=== PATIENT | male | born 1940 | race Caucasian/White ===

== ENCOUNTER 2018-08-19 07:24 | Day surgery (SDC) | payer MEDICARE, BC, SELFPAY ==
--- NOTE | 2018-08-18 07:23 | POEE_ITS ---
History of Present Illness Chief Complaint: Progressive decreased vision, right eye Narrative: Patient is a 78-year-old male with history of myopic astigmatism and contact lens wearer who has noted progressive decreased vision in both eyes at both distance and near. He has significant difficulty with glare from h eadlights at night. On examination he was noted to have moderate nuclear and cortical cataracts. He was significantly symptomatic that he desired cataract surgery and attempt to improve and maximize his vision. NOTE: The Chief Complaint, HPI, Past Medical History, Past Surgical History, Family History, Social History, Medications, and complete Ophthalmic Exam with detailed Assessment and Plan have already been documented in the patient's outpatient ophthalmic record and are not covered again in detail here. [facility] Medical History Cortical cataract of right eye (Acute) Nuclear sclerotic cataract of right eye (Acute) Surgical History Arthroscopy, Shoulder (02/24/16) Family History Mother Heart disease Father Heart disease Stroke Brother Diabetes Essential hypertension Grandfather Heart disease Grandfather No problems noted. Grandmother No problems noted. Grandmother No problems noted. Son Stroke Daughter Substance abuse Social History Smoking and Tabacco status: Former Tobacco Use Meds Home Medications Medication Instructions Recorded Confirmed Type Lactaid 3,000 unit PO PRN tab.chew 11/18/12 08/16/18 History Lactobacillus acidophilus 1 cap PO DAILY 11/18/12 08/16/18 History ascorbic acid (vitamin C) 500 mg PO DAILY 11/18/12 08/16/18 History cholecalciferol (vitamin D3) 1 cap PO DAILY 11/18/12 08/16/18 History cyanocobalamin (vitamin B-12) 1,000 mcg PO DAILY 11/18/12 08/16/18 History [Vitamin B-12] multivitamin [One Daily] 1 tab PO DAILY 11/18/12 08/16/18 History saw palmetto fruit 450 mg PO DAILY 11/18/12 08/16/18 History ibuprofen [Advil] 2 tab PO TID PRN 02/01/15 08/16/18 History glucosamine sulfate 2KCl 1,000 mg PO DAILY 04/24/15 08/16/18 History acetaminophen [Acetaminophen Extra 1,000 mg PO TID #180 tab 10/01/15 08/16/18 Rx Strength] sildenafil [Viagra] 100 mg PO DAILY #3 tab-cap 11/30/17 08/16/[address] - ER 3 mg 3 mg PO DAILY #90 tab 05/31/18 08/16/18 Rx capsule,delayed,extended release Allergies Allergy/AdvReac Type Severity Reaction Status Date / Time iodine Allergy Unknown SWELLING; Verified 08/16/18 16:12 HIVES lactose Allergy Unknown Verified 08/16/18 16:12 shellfish derived Allergy Unknown SWELLING; Verified 08/16/18 16:12 HIVES Exam OCULAR EXAM:: Most recent ocular examination revealed corrected visual acuity of 20/30 OD, 20/20 OS. Intraocular pressure is 19 OD, 18 OS. Slit-lamp examination reveals pupils dilating to 6 mm OU. 1+ nuclear with 2+ cortical cataract OU. Pupils equal, round, and reactive without afferent pupillary defect dilated funduscopic examination shows disc cupping of 0.3 OU with good color. The optic nerves have good perfusion and normal color. The retinal vasculature is normal without significant tortuosity or abnormality. The maculas are normal in appearance with normal contour and foveal reflex appropriate for age. The peripheral retina and vitreous are normal. BRIGHTNESS ACUITY TESTING (BAT):: Brightness acuity testing of the right eye off is 20/30. Low is 20/20. Medium is 20/20. High is 20/25. Assessment and Plan (1) Nuclear sclerotic cataract of right eye: Current visit: No Status: Acute Assessment: Visually significant cataract, right eye. Plan: Cataract extraction with intraocular lens implantation, right eye (2) Cortical cataract of right eye: Current visit: No Status: Acute Assessment: Visually significant cataract, right eye. Plan: Cataract extraction with intraocular lens implantation, right eye Note: NOTE:: The details of the planned surgery, including the risks, indications,limitations,expectations,outcome and possible complications were explained to the patient. The patient understands the complications including, but not limited to: infection, hemorrhage, posterior dislocation of the lens or nuclear fragments which may require the intervention of a vitreoretinal surgeon, possible loss of the eye, or from anesthetic complications. The patient has been made aware of the option of not having surgery, that vision following surgery may not be equal to that prior to surgery, and that the planned surgery may not achieve the intended results. Following this discussion, which the patient appeared to understand, the patient wishes to proceed with cataract surgery with lens implantation of the affected eye to improve and maximize vision.
[2018-08-19 07:39] VITALS: BP 136/80; PULSE 52; RESP 14; TEMP 35.3; O2SAT 98
[2018-08-19] MEDS: Tetracaine 0.5% 4 ML BTL OD ×4 (07:56→09:17)
[2018-08-19] MEDS: Tropicam./Phenyleph. (1/2.5%) 5 ML BTL OD ×3 (07:58→08:12)
--- NOTE | 2018-08-19 08:06 | W.PM.DSUDISC ---
Discharge Plan Discharge Details Attending Provider: Jamin Booth Primary Care Provider: Terry Braden Home Meds and New Rx's Prescriptions: No Action budesonide [Entocort EC] 3 mg capsule,delayed,extend.release 3 mg PO DAILY Qty: 90 RF: 4 multivitamin [One Daily] 1 EACH tablet 1 tab PO DAILY RF: 0 cyanocobalamin (vitamin B-12) [Vitamin B-12] 1,000 MCG tablet extended release 1,000 mcg PO DAILY RF: 0 ascorbic acid (vitamin C) 500 MG tablet 500 mg PO DAILY RF: 0 Lactaid 3,000 UNIT tablet,chewable 3,000 unit PO PRN RF: 0 cholecalciferol (vitamin D3) 1,000 UNIT capsule 1 cap PO DAILY RF: 0 saw palmetto fruit 450 MG capsule 450 mg PO DAILY RF: 0 Lactobacillus acidophilus 1 EACH capsule 1 cap PO DAILY RF: 0 ibuprofen [Advil] 200 MG tablet 2 tab PO TID PRNRF: 0 glucosamine sulfate 2KCl 1,000 MG tablet 1,000 mg PO DAILY RF: 0 sildenafil [Viagra] 100 MG tablet 100 mg PO DAILY Qty: 3 RF: 6 acetaminophen [Acetaminophen Extra Strength] 500 MG tablet 1,000 mg PO TID Qty: 180 RF: 3 Discharge Instructions Stand Alone Forms: Post-op Topical Cataract, Kike Whaley (DSU) DS: Diagnosis Discharge Diagnosis (1) Status post cataract extraction and insertion of intraocular lens of right eye: Status: Chronic
--- NOTE | 2018-08-19 08:06 | W.PM.OP ---
Date of service: 08/19/18 Time of Service: 10:08 Operative Note PRE-OP DIAGNOSIS: Cataract, right eye, with corneal astigmatism POST-OP DIAGNOSIS: same PROCEDURE: Cataract extraction using phacoemulsification with toric intraocular lens implant, right eye SURGEON: Jamin Booth ANESTHESIA: MAC (with local sub-tenon's anesthetic injection) PATHOLOGY: none sent COMPLICATIONS: None Patient was transported to: same day Patient's condition: stable Implants: [employer] / ATUL Tecnis ZCT Toric Intraocular Lens Indications: Progressive decreased vision due to cataract, right eye, with corneal astigmatism Procedure Description: CATARACT SURGERY OPERATIVE REPORT PREOPERATIVE DIAGNOSIS: Nuclear/cortical cataract, right eye with against the rule astigmatism POSTOPERATIVE DIAGNOSIS: Same OPERATION: Cataract extraction using phacoemulsification with posterior chamber toric intraocular lens implant, right eye. IOL: IOL [employer] Director/Model: [employer] / ATUL Tecnis ZCT 150 IOL Power: + 21.50 diopters sphere, 1.50 cylinder IOL Serial Number: [id number] Optic Diameter: 6.0mm Haptic/Overall Diameter: 13.00mm PHACO INFO: Gray [employer] Vision System with OZil and Active Fluidics Cumulative Dispersed Energy (CDE): 9.38 seconds SURGEON: Jamin Booth MD, ONESIMO ANESTHESIA: Monitored Anesthesia Care (MAC), with local sub-tenon's anesthetic infiltration COMPLICATIONS: None SPECIMENS: None INDICATIONS FOR PROCEDURE: Patient is a 78-year-old gentleman with history of astigmatism who presented with diminished visual acuity in both eyes secondary to the development of bilateral nuclear and cortical cataracts. He was significantly symptomatic that he desired cataract surgery and attempt to improve and maximize his vision. The option of a toric intraocular lens was offered to the patient and he wished to proceed PROCEDURE: The correct surgical eye was identified and marked as the right eye and the pupil was dilated in the preoperative area using mydriatics and cycloplegics. The dilated pupil size was 7.0 mm. With the patient in the seated position, topical anesthetic was applied and a surgical marker was used to alexx the limbus at 6:00. A Surgilum Robomarker was then used to alexx the 0/180 degree reference axis. Oral sedation was administered in the form of an Imprimis MKO Melt (midazolam 3mg/ketamine 25mg/ondansetron 2mg). The patient was brought to the operating room where cardiopulmonary monitoring was instituted and surgical time-out was performed, confirming the correct operative eye and IOL power. Topical anesthesia was administered and the conjunctival fornices were irrigaed with sterile water (no Betadine was used due to a documented iodine allergy). . Lidocaine gel was applied to the cornea and the hayde-ocular area was prepped using sterile water and draped in the usual sterile fashion for intraocular surgery, including an aperture drape. A Tegaderm transparent film dressing was cut in half and used to cover the lashes and lid margins. Care was taken to sequester the lashes and lid margins under the Tegaderm dressing. A lid speculum was placed between the lids of the operative eye and the Lily-Ana operating microscope was maneuvered into position. Ivan scissors were then used to make a conjunctival buttonhole approximately 6mm posterior to the limbus in the inferonasal quadrant. Blunt dissection was carried out to expose bare sclera, and a blunt-tipped sub-tenon?s anesthesia cannula was introduced and passed posteriorly along the globe where non-preserved plain lidocaine was injected into posterior sub-Tenon?s space. A corneal ring gauge and axis marker were then used to alexx the 171 degree position for the main phaco incision.and the 171/351 degree axis for alignment of the toric IOL. A sideport knife was used to make a paracentesis port at the 7:00 postion and the anterior chamber was filled with Healon GV. A 2.4mm keratome knife was used to create a half-thickness groove at the limbus and then to construct a three-plane near-clear corneal tunnel extending 2.0mm into clear cornea at the 171 degree axis. . A flap was raised on the anterior capsule and capsulorhexis forceps were used to complete a continuous curvilinear capsulorhexis of 4.8 mm. Balanced salt solution was then used to perform cortical cleaving hydrodissection and nuclear hydrodelineation until the lens could be freely rotated within the capsular bag. The lens nucleus was then disassembled and removed within the capsular bag and iris plane using phacoemulsification. Residual cortical material was removed using the 45-degree angled silicone I/A tip with 0.3mm port. The posterior capsule was carefully polished to remove as much residual lens epithelial cells as safely possible. The capsular bag was then inflated and the anterior chamber deepened with viscoelastic. The lens implant described above was inserted into the capsular bag using the ATUL [place] Injector. A Kuglen hook was used to dial the IOL into position, about 10 degrees counterclockwise of its final alignment. Residual viscoelastic was then removed first from posterior to the IOL, then from the anterior chamber using the I/A handpiece. The I/A handpiece was then used to dial the IOL to the target axis. The lens implant was noted to center nicely within the capsular bag, with the toric IOL magdaleno aligned at the 171/351 degree axis. The incisions were stromally hydrated, and the anterior chamber was reformed using BSS. Then 0.4cc of moxifloxacin 1.5mg/ml were injected into the capsular bag and anterior chamber. The incisions were checked with a Weck spear and found to be secure. Two drops of Imprimis combination moxifloxacin/dexamethasone solution were applied to the eye. The drapes were removed and a clear plastic protective eye shield was placed over the eye. The patient was then returned to Same Day Surgery in stable condition.
[2018-08-19] MEDS: Lidocaine 2% Jelly 6 ML SYR (09:17)
[2018-08-19] MEDS: Lidocaine 1% Pres-Free 5 ML VIAL (09:28)
[2018-08-19] MEDS: Balanced Salt Soln.-PLUS 500 ML BAG (09:29)
[2018-08-19 10:34] VITALS: BP 138/69; PULSE 40; RESP 14; TEMP 35.8; O2SAT 99
== END 2018-08-19 10:50 | disposition home or self-care (01) ==
PROVIDERS: PCP Emergency Medicine; Visit Provider Ophthalmology
PROC: (CPT 66984; principal; 2018-08-19 09:30)
DX: H25.11 Age-related nuclear cataract, right eye (principal); H25.011 Cortical age-related cataract, right eye; H52.201 Unspecified astigmatism, right eye
CPT/HCPCS: 66984; V2632

== ENCOUNTER 2018-09-02 08:11 | Day surgery (SDC) | payer MEDICARE, BC, SELFPAY ==
--- NOTE | 2018-09-01 19:14 | POEE_ITS ---
History of Present Illness Chief Complaint: Progressive decreased vision, left eye Narrative: The patient is a 78-year old male with history of myopic astigmatism who has developed moderate bilateral nuclear and cortical cataracts. He has become increasingly symptomatic with progressive decreased vision over the past 6 months at distance. The option of cataract surgery was offered to the patient and he wished to proceed. He underwent cataract surgery in the right eye on 08/19/2018 with implantation of a toric intraocular lens implant. Postoperatively, he has regained best corrected vision of 20/15 in the right eye. Quality of vision is somewhat limited by the presence of a pre-existing epiretinal membrane in the right eye. He now presents for cataract surgery in the left eye. NOTE: The Chief Complaint, HPI, Past Medical History, Past Surgical History, Family History, Social History, Medications, and complete Ophthalmic Exam with detailed Assessment and Plan have already been documented in the patient's outpatient ophthalmic record and are not covered again in detail here. [facility] Medical History Cortical cataract of left eye (Acute) Nuclear sclerotic cataract of left eye (Acute) Cortical cataract of right eye (Resolved) Nuclear sclerotic cataract of right eye (Resolved) Surgical History Status post cataract extraction and insertion of intraocular lens of right eye (Chronic 08/19/18) Arthroscopy, Shoulder (02/24/16) Family History Mother Heart disease Father Heart disease Stroke Brother Diabetes Essential hypertension Grandfather Heart disease Grandfather No problems noted. Grandmother No problems noted. Grandmother No problems noted. Son Stroke Daughter Substance abuse Social History Smoking and Tabacco status: Former Tobacco Use Meds Home Medications Medication Instructions Recorded Confirmed Type Lactaid 3,000 unit PO PRN tab.chew 11/18/12 08/19/18 History Lactobacillus acidophilus 1 cap PO DAILY 11/18/12 08/19/18 History ascorbic acid (vitamin C) 500 mg PO DAILY 11/18/12 08/19/18 History cholecalciferol (vitamin D3) 1 cap PO DAILY 11/18/12 08/19/18 History cyanocobalamin (vitamin B-12) 1,000 mcg PO DAILY 11/18/12 08/19/18 History [Vitamin B-12] multivitamin [One Daily] 1 tab PO DAILY 11/18/12 08/19/18 History saw palmetto fruit 450 mg PO DAILY 11/18/12 08/19/18 History ibuprofen [Advil] 2 tab PO TID PRN 02/01/15 08/16/18 History glucosamine sulfate 2KCl 1,000 mg PO DAILY 04/24/15 08/19/18 History acetaminophen [Acetaminophen Extra 1,000 mg PO TID #180 tab 10/01/15 08/16/18 Rx Strength] sildenafil [Viagra] 100 mg PO DAILY #3 tab-cap 11/30/17 08/19/[address] - ER 3 mg 3 mg PO DAILY #90 tab 05/31/18 08/19/18 Rx capsule,delayed,extended release Allergies Allergy/AdvReac Type Severity Reaction Status Date / Time iodine Allergy Unknown SWELLING; Verified 08/19/18 07:33 HIVES lactose Allergy Unknown Verified 08/19/18 07:33 shellfish derived Allergy Unknown SWELLING; Verified 08/19/18 07:33 HIVES Exam OCULAR EXAM:: Most recent ocular examination is significant for best corrected vision of 20/15 in the right eye, 20/20 in the left eye. Intraocular pressure is 19 OD, 18 OS. Extraocular motility is normal. Pupils equal, round, and reac tive without afferent pupillary defect slit-lamp examination is significant for pupils dilating to 6 mm OU. 2+ cortical with 1+ nuclear cataract OS. In the the right eye there is a well-positioned PCIOL with clear posterior capsule. Funduscopic examination reveals disc cupping of 0.3 OU with normal vessels. An epiretinal membrane is present OD. The left macula is normal. Peripheral retina and vitreous is normal OU. BRIGHTNESS ACUITY TESTING (BAT):: Brightness acuity testing of the left eye off is 20/20. Low is 20/20. Medium is 20/20. High is 20/25. Assessment and Plan (1) Nuclear sclerotic cataract of left eye: Current visit: No Status: Acute Assessment: Visually significant cataract, left eye. Plan: Cataract extraction with intraocular lens implantation, left eye (2) Cortical cataract of left eye: Current visit: No Status: Acute Assessment: Visually significant cataract, left eye. Plan: Cataract extraction with intraocular lens implantation, left eye Note: NOTE:: The details of the planned surgery, including the risks, indications,limitations,expectations,outcome and possible complications were explained to the patient. The patient understands the complications including, but not limited to: infection, hemorrhage, posterior dislocation of the lens or nuclear fragments which may require the intervention of a vitreoretinal surgeon, possible loss of the eye, or from anesthetic complications. The patient has been made aware of the option of not having surgery, that vision following surgery may not be equal to that prior to surgery, and that the planned surgery may not achieve the intended results. Following this discussion, which the patient appeared to understand, the patient wishes to proceed with cataract surgery with lens implantation of the affected eye to improve and maximize vision.
--- NOTE | 2018-09-02 07:14 | W.PM.DSUDISC ---
Discharge Plan Disposition Patient Disposition: HOME Condition: Stable Discharge Details Attending Provider: Jamin Booth Primary Care Provider: Terry Braden Home Meds and New Rx's Prescriptions: No Action budesonide [Entocort EC] 3 mg capsule,delayed,extend.release 3 mg PO DAILY Qty: 90 RF: 4 multivitamin [One Daily] 1 EACH tablet 1 tab PO DAILY RF: 0 cyanocobalamin (vitamin B-12) [Vitamin B-12] 1,000 MCG tablet extended release 1,000 mcg PO DAILY RF: 0 ascorbic acid (vitamin C) 500 MG tablet 500 mg PO DAILY RF: 0 Lactaid 3,000 UNIT tablet,chewable 3,000 unit PO PRN RF: 0 cholecalciferol (vitamin D3) 1,000 UNIT capsule 1 cap PO DAILY RF: 0 saw palmetto fruit 450 MG capsule 450 mg PO DAILY RF: 0 Lactobacillus acidophilus 1 EACH capsule 1 cap PO DAILY RF: 0 ibuprofen [Advil] 200 MG tablet 2 tab PO TID PRNRF: 0 glucosamine sulfate 2KCl 1,000 MG tablet 1,000 mg PO DAILY RF: 0 sildenafil [Viagra] 100 MG tablet 100 mg PO DAILY Qty: 3 RF: 6 acetaminophen [Acetaminophen Extra Strength] 500 MG tablet 1,000 mg PO TID Qty: 180 RF: 3 Discharge Instructions Stand Alone Forms: Post-op Topical Cataract, Kike Whaley (DSU) Discharge Orders Discharge Orders: Discharge Order (Routine); Ordered 09/02/18 Ordered By: Jamin Booth DS: Diagnosis Discharge Diagnosis (1) Status post cataract extraction and insertion of intraocular lens of left eye: Status: Chronic
--- NOTE | 2018-09-02 07:14 | W.PM.OP ---
Date of service: 09/02/18 Time of Service: 10:32 Operative Note PRE-OP DIAGNOSIS: Cataract, left eye, with corneal astigmatism POST-OP DIAGNOSIS: same SURGEON: Jamin Booth ANESTHESIA: MAC (with local sub-tenon's anesthetic injection) PATHOLOGY: none sent COMPLICATIONS: None Patient was transported to: same day Patient's condition: stable Implants: [employer] / ATUL Tecnis ZCT Toric Intraocular Lens Indications: Progressive decreased vision due to cataract, left eye, with corneal astigmatism Procedure Description: CATARACT SURGERY OPERATIVE REPORT PREOPERATIVE DIAGNOSIS: Nuclear/cortical cataract, left eye Myopic astigmatism, left eye POSTOPERATIVE DIAGNOSIS: Same OPERATION: Cataract extraction using phacoemulsification with posterior chamber toric intraocular lens implant, left eye. IOL: IOL Transmission Assembler/Model: [employer] / ATUL Tecnis ZCT 150 IOL Power: + 21.0 diopters sphere, 1.50 cylinder IOL Serial Number: [id number] Optic Diameter: 6.0mm Haptic/Overall Diameter: 13.00mm PHACO INFO: [employer]Jotkyurion Vision System with OZil and Active Fluidics Cumulative Dispersed Energy (CDE): 10.01 seconds SURGEON: Jamin Booth MD, ONESIMO ANESTHESIA: Monitored Anesthesia Care (MAC), with local sub-tenon's anesthetic infiltration COMPLICATIONS: None SPECIMENS: None INDICATIONS FOR PROCEDURE: The patient is a 78-year old male with history of myopic astigmatism and contact lens wearer who has developed bilateral nuclear and cortical cataracts. He has become increasingly symptomatic and desires cataract surgery and attempt to improve and maximize his vision. He is Ardie undergone cataract surgery in his right eye and is doing well postoperatively. He now presents for cataract surgery in the left eye PROCEDURE: The correct surgical eye was identified and marked as the left eye and the pupil was dilated in the preoperative area using mydriatics and cycloplegics. The dilated pupil size was 6.0 mm. With the patient in the seated position, topical anesthetic was applied and a surgical marker was used to alexx the limbus at 6:00. A Surgilum Robomarker was then used to alexx the 0/180 degree reference axis. No sedation was administered. The patient was brought to the operating room where cardiopulmonary monitoring was instituted and surgical time-out was performed, confirming the correct operative eye and IOL power. Topical anesthesia was administered and ophthalmic povidone-iodine 5% was instilled into the conjunctival fornices. Lidocaine gel was applied to the cornea and the hayde-ocular area was prepped with Betadine 10% solution and draped in the usual sterile fashion for intraocular surgery, including an aperture drape. A Tegaderm transparent film dressing was cut in half and used to cover the lashes and lid margins. Care was taken to sequester the lashes and lid margins under the Tegaderm dressing. A lid speculum was placed between the lids of the operative eye and the Lily-Ana operating microscope was maneuvered into position. Ivan scissors were then used to make a conjunctival buttonhole approximately 6mm posterior to the limbus in the inferonasal quadrant. Blunt dissection was carried out to expose bare sclera, and a blunt-tipped sub-tenon?s anesthesia cannula was introduced and passed posteriorly along the globe where non-preserved plain lidocaine was injected into posterior sub-Tenon?s space. A corneal ring gauge and axis marker were then used to alexx the 29-degree position for the main phaco incision, and the 29/209 degree axis for alignment of the toric IOL. A sideport knife was used to make a paracentesis port superior/superiorly, and the anterior chamber was filled with Healon GV. A 2.4mm keratome knife was used to create a half-thickness groove at the limbus and then to construct a three-plane near-clear corneal tunnel extending 2.0mm into clear cornea at the 29 degree axis. . A flap was raised on the anterior capsule and capsulorhexis forceps were used to complete a continuous curvilinear capsulorhexis of 4.5 mm. Balanced salt solution was then used to perform cortical cleaving hydrodissection and nuclear hydrodelineation until the lens could be freely rotated within the capsular bag. The lens nucleus was then disassembled and removed within the capsular bag and iris plane using phacoemulsification. Residual cortical material was removed using the 45-degree angled silicone I/A tip with 0.3mm port. The posterior capsule was carefully polished to remove as much residual lens epithelial cells as safely possible. The capsular bag was then inflated and the anterior chamber deepened with viscoelastic. The lens implant described above was inserted into the capsular bag using the ATUL [place]' Injector. A Kuglen hook was used to dial the IOL into position, about 10 degrees counterclockwise of its final alignment. Residual viscoelastic was then removed first from posterior to the IOL, then from the anterior chamber using the I/A handpiece. The I/A handpiece was then used to dial the IOL to the target axis. The lens implant was noted to center nicely within the capsular bag, with the toric IOL magdaleno aligned at the 29/209 degree axis. The incisions were stromally hydrated, and the anterior chamber was reformed using BSS. Then 0.4cc of moxifloxacin 1.5mg/ml were injected into the capsular bag and anterior chamber. The incisions were checked with a Weck spear and found to be secure. Several drops of ophthalmic povidone-iodine 5% were then applied to the eye followed by two drops of Imprimis combination moxifloxacin/dexamethasone solution. The drapes were removed and a clear plastic protective eye shield was placed over the eye. The patient was then returned to Same Day Surgery in stable condition.
[2018-09-02 08:20] VITALS: BP 149/85; PULSE 34; RESP 15; TEMP 35.3; O2SAT 99
[2018-09-02 08:43] VITALS: BP 149/85; PULSE 34; RESP 15; TEMP 35.3; O2SAT 99
[2018-09-02] MEDS: Tetracaine 0.5% 4 ML BTL OS ×4 (08:48→09:47)
[2018-09-02] MEDS: Tropicam./Phenyleph. (1/2.5%) 5 ML BTL OS ×3 (08:48→08:59)
[2018-09-02] MEDS: Lidocaine 2% Jelly 6 ML SYR (09:46)
[2018-09-02] MEDS: Lidocaine 1% Pres-Free 5 ML VIAL (09:51)
[2018-09-02] MEDS: Balanced Salt Soln.-PLUS 500 ML BAG (09:52)
== END 2018-09-02 10:45 | disposition home or self-care (01) ==
LOC: SUR 08:12
PROVIDERS: PCP Emergency Medicine; Visit Provider Ophthalmology
PROC: (CPT 66984; principal; 2018-09-02 11:15)
DX: H25.812 Combined forms of age-related cataract, left eye (principal); H52.222 Regular astigmatism, left eye
CPT/HCPCS: 66984; V2632

== ENCOUNTER → 2018-09-12 14:11 | Outpatient (BNVA) | payer MEDICARE, BC, SELFPAY | PROVIDERS: PCP Emergency Medicine; Referring Provider Emergency Medicine; Visit Provider Student in an Organized Health Care Education/Training Program | DX: M79.661 Pain in right lower leg (principal) | CPT/HCPCS: 99212; 99213 ==

== ENCOUNTER 2018-10-06 00:37 | Outpatient (CLI) | payer MEDICARE, BC, SELFPAY ==
--- NOTE | 2018-10-06 14:57 | DI.US_ITS ---
SYMPTOM/DIAGNOSIS: RT POST CALF PAIN, M79.661, ? DVT DUPLEX VENOUS ULTRASOUND RIGHT LOWER EXTREMITY: The study was carried out according to the usual protocol. The superficial, femoral, popliteal and proximal trifurcation in the superior portion of the leg are well seen. Good compressibility is noted throughout. Flow is demonstrated and flow augmentation was easily elicited with calf compression. SUMMARY: There is no evidence of DVT. Note is made of an elongated fluid collection in the calf which does not appear to be vascular and which may be intramuscular. Please correlate clinically. This measures about 45 by 5 by 3 mm.
== END 2018-10-06 00:57 ==
PROVIDERS: PCP Emergency Medicine; Visit Provider Student in an Organized Health Care Education/Training Program
DX: M79.661 Pain in right lower leg (principal)
CPT/HCPCS: 93971

== ENCOUNTER 2018-12-07 09:18 | Outpatient (CLI) | payer MEDICARE, BC, SELFPAY ==
--- NOTE | 2018-12-07 15:00 | DI.RAD_ITS ---
SYMPTOMS/DIAGNOSIS: LEFT HIP PAIN, M25.552 LEFT HIP: Two views. There is mild narrowing of the joint space. The left hip joint space is otherwise well maintained. The bones are intact and normally mineralized. Mild degenerative changes are seen in the lower lumbosacral spine. Vascular calcifications are seen in the soft tissues. IMPRESSION: Mild degenerative changes of the left hip.
== END 2018-12-07 09:38 ==
PROVIDERS: PCP Emergency Medicine; Visit Provider Emergency Medicine
DX: M25.552 Pain in left hip (principal); M16.12 Unilateral primary osteoarthritis, left hip
CPT/HCPCS: 73502

== ENCOUNTER → 2018-12-19 14:08 | Outpatient (BNVA) | payer MEDICARE, BC, SELFPAY | PROVIDERS: PCP Emergency Medicine; Referring Provider Emergency Medicine; Visit Provider Student in an Organized Health Care Education/Training Program | DX: M16.12 Unilateral primary osteoarthritis, left hip (principal) | CPT/HCPCS: 99213 ==

== ENCOUNTER 2018-12-22 00:59 | Outpatient (CLI) | payer MEDICARE, BC, SELFPAY ==
--- NOTE | 2018-12-22 08:01 | DI.RAD_ITS ---
SYMPTOM/DIAGNOSIS: LEFT HIP INJECTION, PRIMARY OA LT HIP M16.12 FLUOROSCOPY 12/22 Fluoroscopy was utilized by Dr. Alamo. Hard copies show intra-articular injection of left hip. Fluoroscopy Time: .04 min
[2018-12-22] MEDS: Omnipaque 300 MG/ML 10 ML BTL IJ (11:19)
[2018-12-22] MEDS: Bupivacaine 0.5% Pres-Free 10 ML VIAL 6 ML IJ (11:20)
[2018-12-22] MEDS: methylPREDNISolone ACETATE 80 MG/ML VIAL IM (11:22)
--- NOTE | 2018-12-22 12:56 | W.PROCNOTE ---
Date of service: 12/22/18 Time of Service: 11:16 Procedure Note Date of procedure: 12/22/18 Procedure: Left Hip Injection with Fluoroscopic Guidance Surgeon/Proceduralist/Physician: Jeronimo Alamo Procedure Diagnosis: Left Hip Osteoarthritis Procedure Indications: Charbel has had persistent pain of the LEFT hip and groin. Noninvasive measures have been tried. To serve as both diagnostic and therapeutic, an injection under fluoroscopy was recommended. I had discussed the risks of the procedure and the patient elected to proceed. Procedure Description: Charbel was greeted in the flouroscopy room. The correct side was identified and the consent was reviewed with the patient and signed. The patient was then placed in the supine position on the fluoroscopy table. The LEFT hip was then prepped with Chloraprep. The anterolateral injection starting point was identiifed by bony landmarks and fluoroscopy. The skin and soft tissue in the tract of the injection was anesthetized with 1% Lidocaine. A spinal needle was then inserted deep into the hip joint at the level of the lateral femoral neck under fluoroscopic guidance. A small amount of Omnipaque solution was injected to confirm intraarticular placement. Once confirmed, the hip was injected with 6cc of 0.5% Bupivicaine and 80mg of Depo-Medrol. A bandaid was placed on the injection site. The patient tolerated the procedure well and noted improvement in pre-injection pain.
== END 2018-12-22 01:19 ==
PROVIDERS: PCP Emergency Medicine; Visit Provider Student in an Organized Health Care Education/Training Program
DX: M16.12 Unilateral primary osteoarthritis, left hip (principal); M25.552 Pain in left hip
CPT/HCPCS: 20610; 77002; J1040

== ENCOUNTER 2019-01-25 01:03 | Outpatient (CLI) | payer MEDICARE, BC, SELFPAY ==
--- NOTE | 2019-01-25 06:29 | DI.RAD_ITS ---
SYMPTOMS/DIAGNOSIS: LT HIP INJECTION, PRIMARY OA LT HIP, M16.12 FLUOROSCOPY: Fluoroscopy Time: 0.07 min Under fluoroscopic guidance Dr. Alamo carried out a left hip joint injection. Please see the procedure report for further information.
[2019-01-25] MEDS: Bupivacaine 0.5% Pres-Free 10 ML VIAL 7 ML IJ (08:13)
[2019-01-25] MEDS: Omnipaque 300 MG/ML 10 ML BTL IJ (08:14)
[2019-01-25] MEDS: methylPREDNISolone ACETATE 80 MG/ML VIAL IM (08:15)
--- NOTE | 2019-01-25 13:00 | W.PROCNOTE ---
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 Noninvasive measures have been tried. An injection under fluoroscopy was recommended, and he underwent one a few weeks ago. However, he reported no improvement.. He had previously had an injection with good results. Given that this provided no improvement, I did offer a repeat injection assuming the previous was not in the correct location. I also discussed trying to target the psoas tendon as well. I had discussed the risks of the procedure and the patient elected to proceed. Procedure Description: Charbel was greeted in the flouroscopy room. The correct side was identified and the consent was reviewed with the patient and signed. The patient was then placed in the supine position on the fluoroscopy table. The LEFT hip was then prepped with Chloraprep. The anterolateral injection starting point was identiifed by bony landmarks and fluoroscopy. The skin and soft tissue in the tract of the injection was anesthetized with 1% Lidocaine. A spinal needle was then inserted deep into the hip joint at the level of the lateral femoral neck under fluoroscopic guidance. A small amount of Omnipaque solution was injected to confirm intraarticular placement. Once confirmed, the hip was injected with 6cc of 0.5% Bupivicaine and 60mg of Depo-Medrol. I then place his leg into the [id number] position and brought the spinal needle across the anterior hip joint towards the location of the psoas tendon. This was washed with fluoroscopy. Some slight pressure in this area seem to push the needle tip into the psoas tendon. A small amount of Omnipaque was injected here which showed some vertical spread assuming to be in or around the psoas tendon. Aspiration revealed no blood. I then injected 2 cc of 0.5% bupivacaine and 20 mg of Depo-Medrol. A bandaid was placed on the injection site. The patient tolerated the procedure well and noted improvement in pre-injection pain.
== END 2019-01-25 01:23 ==
PROVIDERS: PCP Emergency Medicine; Visit Provider Student in an Organized Health Care Education/Training Program
DX: M16.12 Unilateral primary osteoarthritis, left hip (principal); M25.552 Pain in left hip; M76.12 Psoas tendinitis, left hip
CPT/HCPCS: 20610; 20550; 77002; J1040

== ENCOUNTER → 2019-07-21 07:53 | Outpatient (BNVA) | payer MEDICARE, BC, SELFPAY | PROVIDERS: PCP Emergency Medicine; Referring Provider Emergency Medicine; Visit Provider Student in an Organized Health Care Education/Training Program | DX: S76.311D Strain of muscle, fascia and tendon of the posterior muscle group at thigh level, right thigh, subsequent encounter (principal); X58.XXXD Exposure to other specified factors, subsequent encounter; M16.11 Unilateral primary osteoarthritis, right hip | CPT/HCPCS: 99213 ==

== ENCOUNTER → 2019-08-18 09:15 | Outpatient (BNVA) | payer MEDICARE, BC, SELFPAY | PROVIDERS: PCP Emergency Medicine; Referring Provider Emergency Medicine; Visit Provider Student in an Organized Health Care Education/Training Program | DX: S76.311D Strain of muscle, fascia and tendon of the posterior muscle group at thigh level, right thigh, subsequent encounter (principal); X58.XXXD Exposure to other specified factors, subsequent encounter; M16.11 Unilateral primary osteoarthritis, right hip | CPT/HCPCS: 99213 ==

== ENCOUNTER 2019-09-14 00:34 | Outpatient (CLI) | payer MEDICARE, BC, SELFPAY ==
--- NOTE | 2019-09-14 07:30 | DI.RAD_ITS ---
EXAM: RF JOINT INJECTION FLUORO GUID CLINICAL HISTORY: RT HIP PAIN- R HIP INJ UNDER FLUORO,M25.551 TECHNIQUE: COMPARISON: No exams were available for comparison FINDINGS: Fluoroscopy was utilized by Dr. Alamo during right hip injection. Hard copy shows intra-articular injection. Fluoro time was 3 seconds. IMPRESSION:
--- NOTE | 2019-09-14 15:22 | W.PROCNOTE ---
Date of service: 09/14/19 Time of Service: 15:22 Procedure Note Date of procedure: 09/14/19 Procedure: Right Hip Injection with Fluoroscopic Guidance Surgeon/Proceduralist/Physician: Jeronimo Alamo Procedure Diagnosis: Right Hip Osteoarthritis Procedure Indications: Charbel has had persistent pain of the RIGHT hip and groin. Noninvasive measures have been tried. To serve as both diagnostic and therapeutic, an injection under fluoroscopy was recommended. I had discussed the risks of the procedure and the patient elected to proceed. Procedure Description: Charbel was greeted in the flouroscopy room. The correct side was identified and the consent was reviewed with the patient and signed. The patient was then placed in the supine position on the fluoroscopy table. The RIGHT hip was then prepped with Chloraprep. The anterolateral injection starting point was identiifed by bony landmarks and fluoroscopy. The skin and soft tissue in the tract of the injection was anesthetized with 1% Lidocaine. A spinal needle was then inserted deep into the hip joint at the level of the lateral femoral neck under fluoroscopic guidance. A small amount of Omnipaque solution was injected to confirm intraarticular placement. Once confirmed, the hip was injected with 6cc of 0.5% Bupivicaine and 80mg of Depo-Medrol. A bandaid was placed on the injection site. The patient tolerated the procedure well and noted improvement in pre-injection pain.
[2019-09-14] MEDS: Bupivacaine 0.5% Pres-Free 10 ML VIAL 6 ML IJ (15:25)
[2019-09-14] MEDS: Omnipaque 300 MG/ML 10 ML BTL IJ (15:25)
[2019-09-14] MEDS: methylPREDNISolone ACETATE 80 MG/ML VIAL IM (15:26)
== END 2019-09-14 00:54 ==
PROVIDERS: PCP Emergency Medicine; Visit Provider Student in an Organized Health Care Education/Training Program
DX: M25.551 Pain in right hip (principal); M16.11 Unilateral primary osteoarthritis, right hip
CPT/HCPCS: 20610; 77002; J1040

== ENCOUNTER 2020-01-11 01:29 | Outpatient (CLI) | payer MEDICARE, BC, SELFPAY ==
--- NOTE | 2020-01-11 07:30 | DI.RAD_ITS ---
EXAM: RF JOINT INJECTION FLUORO GUID CLINICAL HISTORY: L HIP INJ UNDER FLUORO,LT HIP PAIN, M25.552 TECHNIQUE: COMPARISON: No exams were available for comparison FINDINGS: Fluoroscopy was utilized by Dr. Alamo during reported left hip injection. Hard copy shows intra-a rticular injection of the left hip. Fluoro time, 3 seconds. IMPRESSION:
--- NOTE | 2020-01-11 13:34 | W.PROCNOTE ---
Date of service: 01/11/20 Time of Service: 13:35 Procedure Note Date of procedure: 01/11/20 Procedure: Left Hip Injection with Fluoroscopic Guidance Surgeon/Proceduralist/Physician: Jeronimo Alamo Procedure Diagnosis: Left Hip Impingement and Arthritis Procedure Indications: Charbel has had progressive pain of the LEFT hip and groin. Noninvasive measures have been tried. He had similar smptoms on the right side which responded well to an injection. He called the office desiring an injection. I had discussed the risks of the procedure and the patient elected to proceed. Procedure Description: Charbel was greeted in the flouroscopy room. The correct side was identified and the consent was reviewed with the patient and signed. The patient was then placed in the supine position on the fluoroscopy table. The LEFT hip was then prepped with Chloraprep. The anterolateral injection starting point was identiifed by bony landmarks and fluoroscopy. The skin and soft tissue in the tract of the injection was anesthetized with 1% Lidocaine. A spinal needle was then inserted deep into the hip joint at the level of the lateral femoral neck under fluoroscopic guidance. A small amount of Omnipaque solution was injected to confirm intraarticular placement. Once confirmed, the hip was injected with 6cc of 0.5% Bupivicaine and 80mg of Depo-Medrol. A bandaid was placed on the injection site. The patient tolerated the procedure well and noted improvement in pre-injection pain.
[2020-01-11] MEDS: Omnipaque 300 MG/ML 10 ML BTL IJ (14:41)
[2020-01-11] MEDS: Bupivacaine 0.5% Pres-Free 10 ML VIAL IJ (14:41)
[2020-01-11] MEDS: methylPREDNISolone ACETATE 80 MG/ML VIAL IM (14:42)
== END 2020-01-11 01:49 ==
PROVIDERS: PCP Emergency Medicine; Visit Provider Student in an Organized Health Care Education/Training Program
DX: M25.552 Pain in left hip (principal); M25.852 Other specified joint disorders, left hip
CPT/HCPCS: 20610; 77002; J1040

== ENCOUNTER → 2020-02-05 14:51 | Outpatient (BNVA) | payer MEDICARE, BC, SELFPAY | PROVIDERS: PCP Emergency Medicine; Referring Provider Emergency Medicine; Visit Provider Surgery | DX: Z12.11 Encounter for screening for malignant neoplasm of colon (principal) ==

== ENCOUNTER 2020-03-01 07:32 | Day surgery (SDC) | payer MEDICARE, BC, SELFPAY ==
[2020-03-01 07:47] VITALS: BP 157/83; PULSE 50; RESP 16; TEMP 35.9; O2SAT 98
[2020-03-01] MEDS: Lactated Ringers 1,000 ML 80 ML IV (08:12)
--- NOTE | 2020-03-01 09:00 | W.PM.DSUDISC ---
Discharge Plan Disposition Patient Disposition: HOME Condition: Good Discharge Details Reason For Visit: Colonoscopy Attending Provider: Olivia Alvarez Primary Care Provider: Terry Braden Home Meds and New Rx's Prescriptions: Continued sildenafil [Viagra] 100 mg tablet 100 mg PO DAILY Qty: 3 RF: 6 multivitamin [One Daily] 1 EACH tablet 1 tab PO DAILY RF: 0 cyanocobalamin (vitamin B-12) [Vitamin B-12] 1,000 MCG tablet extended release 1,000 mcg PO DAILY RF: 0 ascorbic acid (vitamin C) 500 MG tablet 500 mg PO DAILY RF: 0 Lactaid 3,000 UNIT tablet,chewable 3,000 unit PO PRN RF: 0 cholecalciferol (vitamin D3) 1,000 UNIT capsule 1 cap PO DAILY RF: 0 saw palmetto fruit 450 MG capsule 450 mg PO DAILY RF: 0 Lactobacillus acidophilus 1 EACH capsule 1 cap PO DAILY RF: 0 ibuprofen [Advil] 200 MG tablet 2 tab PO TID PRNRF: 0 glucosamine sulfate 2KCl 1,000 MG tablet 1,000 mg PO DAILY RF: 0 budesonide [Entocort EC] 3 mg capsule,delayed,extend.release 3 mg PO DAILY Qty: 90 RF: 4 acetaminophen [Acetaminophen Extra Strength] 500 MG tablet 1,000 mg PO TID Qty: 180 RF: 3 Discharge Instructions Additional Instructions: Findings: Your colonoscopy appeared normal. Routine biopsies were done to evaluate the lymphocytic colitis. Follow up: No further screening colonoscopies are needed but can be considered if symptoms arise. Please call if you develop: fevers >101.5 Nausea or Vomiting Abdominal pain that is not transient DAY SURGERY UNIT POST COLONOSCOPY INSTRUCTIONS 1. Because there will be medication in your system for the next 24 hours, you may feel a little sleepy. Your coordination will be affected. Therefore: a. Do not drive or operate dangerous equipment for 24 hours. b. Do not drink alcohol beverages for 24 hours (not even beer). c. Plan to go home and rest for the day. 2. Generally there are no restrictions on your activity after a day or so has gone by, but you may feel a bit fatigued for a few days. 3 After you arrive home you may have a light meal and return to a normal diet as you can tolerate it without feeling sick to your stomach. 4. After surgery, you may feel pain or discomfort. This should be only transient, but if it persists please contact your doctor. 5. If there are any questions regarding the findings of your procedure, please feel free to contact your doctor. 6. If you are unable to contact your doctor with a problem, contact the hospital at [phone]. 7. Continue all your regular medications unless directed otherwise. I understand the above instructions and have no questions. Signature of Patient or Responsible Adult Escort Date/Time Name of Responsible Adult Escort Signature of Nurse Date/Time Activity:: Activity as Tolerated Diet:: As Tolerated Discharge Orders Discharge Orders: Discharge Order (Routine); Ordered 03/01/20 Ordered By: Olivia Alvarez DS: Diagnosis Discharge Diagnosis (1) Lymphocytic colitis: Status: Acute
--- NOTE | 2020-03-01 09:01 | W.COLOREPORT ---
Date of service: 03/01/20 Time of Service: 09:51 Colonoscopy Report Date of procedure: 03/01/20 Pre-op diagnosis general: Screening, history of lymphocytic colitis Post-op diagnosis procedure note: other (Normal colon) Procedure: Colonoscopy with random biopsies Surgeon: Olivia Alvarez Anesthesia proc note operative: MAC Indications: This 79 year old man presents for routine screening colonoscopy. His last colonoscopy in 2009 was normal. He has lymphocytic colitis that is well controlled with budesonide. Procedure Description: The patient was placed in the left Hartley position. Propofol was titrated to sedation. Digital rectal examination revealed no abnormalities. The scope was advanced to the cecum without difficulty. The ileocecal valve and appendiceal orifice were clearly identified. The prep was good. The scope was slowly withdrawn over the course of greater than 6 minutes with no abnormalities seen in the ascending, transverse, descending, sigmoid colon or rectum including on retroflexed view. Random biopsies were performed throughout and sent in the same specimen container to evaluate for lymphocytic colitis. The patient tolerated the procedure well and was stable to recovery. Routine screening colonoscopy is not needed but colonoscopy can be considered if symptoms indicate.
--- NOTE | 2020-03-01 09:28 | BOWEL_PTH ---
PATIENT: Charbel Navarrete LOC: [facility] U#:[id number] AGE/SX: 79/M ROOM: RE03/01/[address]: Olivia Alvarez MD : [id number] BED: DIS: 03/01/2020 SPEC #: [id number] RECD: 03/01/20 10:51 STATUS: SUZANNE REQ #: [id number] ROMULO: 03/01/20 09:[address]: Olivia Alvarez DEPT: Surgical Specimen RECD BY: Paula Salguero Tissues: 1 - BIOPSY BOWEL Procedures: GROSS AND MICRO LEVEL 4 Comments: [id number]
[2020-03-01 10:14] VITALS: BP 156/90; PULSE 50; RESP 16; TEMP 36.5; O2SAT 100
== END 2020-03-01 10:47 | disposition home or self-care (01) ==
PROVIDERS: PCP Emergency Medicine; Visit Provider Surgery
PROC: 0DJD8ZZ Inspection of Lower Intestinal Tract, Via Natural or Artificial Opening Endoscopic (ICD-10-PCS; CPT 45378; principal; 2020-03-01 09:00)
DX: Z12.11 Encounter for screening for malignant neoplasm of colon (principal); K52.832 Lymphocytic colitis
CPT/HCPCS: 45380; 88305; J2001

== ENCOUNTER 2020-10-24 01:34 | Outpatient (CLI) | payer MEDICARE, BC, SELFPAY ==
--- NOTE | 2020-10-24 07:45 | DI.RAD_ITS ---
Exam(s) RF JOINT INJECTION FLUORO GUID EXAM: RF JOINT INJECTION FLUORO GUID CLINICAL HISTORY: L HIP INJ UNDER FLUORO,LT HIP PRIMARY OA,M16.12 TECHNIQUE: Fluoroscopy provided. Radiologist not present. CONTRAST MATERIAL: None COMPARISON: No exams were available for comparison FINDINGS: Fluoroscopy was provided during right hip therapeutic injection Submitted image(s) reveal intra-articular needle entering from lateral aspect at junction of femoral head and neck. There is intra-articular contrast noted. Please refer to the procedure report for complete details. Cumulative Dose: Ka,r=0.507 mGy IMPRESSION: RADIATION DOSE DELIVERED:
[2020-10-24] MEDS: Omnipaque 300 MG/ML 10 ML BTL IJ (15:04)
[2020-10-24] MEDS: Bupivacaine 0.5% Pres-Free 10 ML VIAL IJ (15:05)
[2020-10-24] MEDS: methylPREDNISolone ACETATE 80 MG/ML VIAL IM (15:06)
--- NOTE | 2020-10-24 15:53 | W.PROCNOTE ---
Date of service: 10/24/20 Time of Service: 15:02 Procedure Note Date of procedure: 10/24/20 Procedure: Left Hip Injection with Fluoroscopic Guidance Surgeon/Proceduralist/Physician: Jeronimo Alamo Procedure Diagnosis: Left Hip Osteoarthritis Procedure Indications: Charbel has had persistent pain of the LEFT hip and groin. Noninvasive measures have been tried. He has previous success with an intra-articular injection of the hip. Thus, an injection under fluoroscopy was recommended. I had discussed the risks of the procedure and the patient elected to proceed. Procedure Description: Charbel was greeted in the flouroscopy room. The correct side was identified and the consent was reviewed with the patient and signed. The patient was then placed in the supine position on the fluoroscopy table. The LEFT hip was then prepped with Chloraprep. The anterolateral injection starting point was identiifed by bony landmarks and fluoroscopy. The skin and soft tissue in the tract of the injection was anesthetized with 1% Lidocaine. A spinal needle was then inserted deep into the hip joint at the level of the lateral femoral neck under fluoroscopic guidance. A small amount of Omnipaque solution was injected to confirm intraarticular placement. Once confirmed, the hip was injected with 6cc of 0.5% Bupivicaine and 80mg of Depo-Medrol. A bandaid was placed on the injection site. The patient tolerated the procedure well and noted improvement in pre-injection pain.
== END 2020-10-24 01:54 ==
PROVIDERS: PCP Emergency Medicine; Visit Provider Student in an Organized Health Care Education/Training Program
DX: M16.12 Unilateral primary osteoarthritis, left hip (principal); M25.552 Pain in left hip; R10.32 Left lower quadrant pain
CPT/HCPCS: 20610; 77002; J1040

== ENCOUNTER 2021-07-03 04:13 | Outpatient (CLI) | payer MEDICARE, BC, SELFPAY ==
[2021-07-03 08:05] LABS: HCT 41.9 % (40.0-50.0); HGB 13.4 g/dL (13.5-17.5); MCH 28.5 pg (27.0-33.0); MPV 10.3 fL (8.0-11.0); Platelet Count 213 10^3/uL (130-400); RBC 4.71 10^6/uL (4.36-5.78); RDW 12.2 % (11.8-14.1); RDW-SD 39.8 fL; WBC 4.96 10^3/uL (4.4-10.8)
[2021-07-03 09:28] LABS: ALT 26 U/L (16-63); AST 22 U/L (15-37); Albumin 3.9 g/dL (3.4-5.0); Alkaline Phosphatase 77 U/L (46-116); Anion Gap 7.5 mmol/L (3-11); BUN 20 mg/dL (7-18); Bilirubin, Total 1.7 mg/dL (0.2-1.0); CO2 30.5 mmol/L (21.0-32.0); Calcium 8.8 mg/dL (8.5-10.1); Chloride 102 mmol/L (98-107); Cholesterol 190 mg/dL (<200); Glucose 95 mg/dL (74-106); HDL Cholesterol 85 mg/dL (40-60); Potassium 4.1 mmol/L (3.5-5.1); Sodium 140 mmol/L (136-145); Total Protein 6.6 g/dL (6.4-8.2)
[2021-07-03 10:06] LABS: Triglyceride < 25 mg/dL (<150)
[2021-07-03 10:17] LABS: LDL CHOLESTEROL 95 mg/dL (<100)
== END 2021-07-03 04:14 | disposition home or self-care (01) ==
LOC: LBO 04:14
PROVIDERS: PCP Emergency Medicine; Visit Provider Family Medicine
DX: I10 Essential (primary) hypertension (principal); R21 Rash and other nonspecific skin eruption
CPT/HCPCS: 36415; 80053; 80061; 83721; 85027; 84443

== ENCOUNTER 2021-08-05 13:27 | Outpatient (CLI) | payer MEDICARE, BC, SELFPAY ==
--- NOTE | 2021-08-05 13:15 | RT.EKG_ITS ---
APPROVED REPORT Exam: Resting ECG Reason for Exam: Chest discomfort Patient Location: O HR:62 bpm ECG Measurements Heart Rate 62 AXIS IN 201 P 80 QRSd 127 QRS -34 QT 431 T 36 QTc 440 Conclusion Sinus rhythm...normal P axis, V-rate 60- 99 IVCD, consider RBBB...QRSd>120mS, terminal axis(90,270)
== END 2021-08-05 13:28 | disposition home or self-care (01) ==
LOC: DI.CM 13:27
PROVIDERS: PCP Family Medicine; Visit Provider Family Medicine
DX: R07.89 Other chest pain (principal)
CPT/HCPCS: 93010

== ENCOUNTER 2021-08-05 19:54 | Outpatient (REF) | payer MEDICARE, BC, SELFPAY | END 2021-08-05 19:55 | disposition home or self-care (01) | LOC: LBN 19:54 | PROVIDERS: PCP Family Medicine; Visit Provider Family Medicine ==

== ENCOUNTER 2021-08-06 01:57 | Outpatient (REF) | payer MEDICARE, BC, SELFPAY ==
[2021-08-06 09:40] LABS: D-Dimer 335 ng/mlFEU (<500)
== END 2021-08-06 01:58 | disposition home or self-care (01) ==
LOC: LBO 01:57
PROVIDERS: PCP Emergency Medicine; Visit Provider Family Medicine
DX: R07.81 Pleurodynia (principal)
CPT/HCPCS: 36415; 85379

== ENCOUNTER 2021-09-18 01:47 | Outpatient (CLI) | payer MEDICARE, BC, SELFPAY ==
--- NOTE | 2021-09-18 09:00 | ETT_ITS ---
APPROVED REPORT Exam: Exercise Treadmill Patient Location: Out-Patient Room/Bed: Stress Nurse: Jerrica Driscoll RN Ordering Provider:JEROME TAYLOR MD, Contact Number: [phone] BMI: 24.36 Baseline Rhythm: Sinus Rhythm, RBBB Indications: LEFT SIDED CHEST PAIN, HYPERTENSION Medical History Medical History: HTN, Anxiety, Cardiac murmur, Sinus bradycardia, Osteoarthritis Cardiac Medications: Losartan, Sildenafil, Allergies: Iodine, Lactose, Shellfish derived Cardiac Risk Factors: FHX of CAD, HTN Previous Cardiac Procedures: None Pretest Chest Pain Characteristics: No chest pain Exercise History: Physically active Physical Disabilities: None Lung Sounds: Clear to auscultation Heart Sounds: Regular Stress Test Details Test: Exercise stress testing was performed using a Ronnell protocol. Rest Stress HR Resting HR Supine: 61 bpm Max Heart Rate (APMHR): 140 bpm Resting HR Standin bpm Target HR (85% APMHR): 119 bpm Max HR Achieved: 129 bpm % of APMHR: 92 Recovery HR: 76 bpm HR response to stress: Normal HR response to stress BP Resting BP Supine: 144/82 mmHg Resting BP Standin/82 mmHg Max BP: 224/100 mmHg Recovery BP: 142/82 mmHg BP response to stress: Abnormal hypertensive response to stress. ECG Resting ECG: Sinus Rhythm, RBBB Ectopy: None Stress ECG: Sinus Tachycardia ST Change: No significant ST segment changes noted Arrhythmia: None Recovery ECG: Sinus Rhythm, RBBB Recovery ST Change: No significant ST segment changes noted Recovery Arrhythmia: PVC, PACs Clinical Reason for Termination: Fatigue Stress Symptoms: General Fatigue Exercise duration: 06 min37 sec Highest Stage Reached: Stage 3: 3.4 mph at 14% grade. Exercise capacity: 7.99 METs Beavers Treadmill Score: 6 Rate Pressure Product: 40425 Stress ECG Conclusion 1. The resting electrocardiogram showed a right bundle branch block 2. Patient exercised on the Ronnell protocol and completed a workload of 7.99 METS, stopping due to fat igue 3. Normal heart rate response to exercise. Patient achieved 92% of predicted heart rate for age. Hy pertensive blood pressure response to exercise 4. There was no electrocardiographic evidence of myocardial ischemia 5. Occasional atrial and ventricular ectopic beats were noted in recovery Beavers Treadmill Score is 6 which is Low risk. Stress Test Summary STAGE Time (mins) Speed (mph) Grade (%) HR BP SYMPTOMS METS Supine 61 144/82 Standing 61 146/82 1 3 1.7 10 98 148/90 4.6 2 6 2.5 12 118 184/92 7 1 min recovery 103 224/100 3 min recovery 74 202/88 6 min recovery 76 142/82
== END 2021-09-18 02:07 ==
PROVIDERS: PCP Family Medicine; Visit Provider Family Medicine
DX: I10 Essential (primary) hypertension (principal); R07.9 Chest pain, unspecified
CPT/HCPCS: 93016; 93018; 93017

== ENCOUNTER 2021-11-20 09:35 | Outpatient (CLI) | payer MEDICARE, BC, SELFPAY ==
--- NOTE | 2021-11-20 09:15 | DI.RAD_ITS ---
Exam(s) XR HIP RT COMPLETE AP PELVIS EXAM: XR HIP RT COMPLETE AP PELVIS CLINICAL HISTORY: right hip pain. TECHNIQUE: 2D digital imaging was performed of the right hip. Two images were obtained. AP pelvis a nd lateral right hip views were obtained. COMPARISON: No exams were available for comparison FINDINGS: BONES: No acute fracture is present. No bony destructive lesion is seen. JOINTS: No dislocation present. There is mild narrowing of the right hip joint space. SOFT TISSUE: Atherosclerosis is present. IMPRESSION: Mild narrowing of the right hip joint. Unremarkable radiographs of the pelvis. DATA REPOSITORY: RADIATION DOSE DELIVERED:
== END 2021-11-20 09:36 | disposition home or self-care (01) ==
LOC: DIORS 09:36
PROVIDERS: PCP Family Medicine; Referring Provider Family Medicine; Visit Provider Physician Assistant
DX: M16.11 Unilateral primary osteoarthritis, right hip
CPT/HCPCS: 99214; 73502

== ENCOUNTER → 2021-11-27 01:38 | Outpatient (CLI) | payer MEDICARE, BC, SELFPAY ==
--- NOTE | 2021-11-27 13:47 | W.PROCNOTE ---
Date of service: 11/27/21 Time of Service: 13:20 Procedure Note Date of procedure: 11/27/21 Procedure: Right Hip Injection with Fluoroscopic Guidance Surgeon/Proceduralist/Physician: Jeronimo Alamo Procedure Diagnosis: Right Hip Pain Procedure Indications: Charbel has had persistent pain of the RIGHT hip and groin. Noninvasive measures have been tried. To serve as both diagnostic and therapeutic, an injection under fluoroscopy was recommended. I had discussed the risks of the procedure and the patient elected to proceed. Procedure Description: Charbel was greeted in the flouroscopy room. The correct side was identified and the consent was reviewed with the patient and signed. The patient was then placed in the supine position on the fluoroscopy table. The RIGHT hip was then prepped with Chloraprep. The anterolateral injection starting point was identiifed by bony landmarks and fluoroscopy. The skin and soft tissue in the tract of the injection was anesthetized with 1% Lidocaine. A spinal needle was then inserted deep into the hip joint at the level of the lateral femoral neck under fluoroscopic guidance. A small amount of Omnipaque solution was injected to confirm intraarticular placement. Once confirmed, the hip was injected with 5cc of 0.5% Bupivicaine and 80mg of Depo-Medrol. A bandaid was placed on the injection site. The patient tolerated the procedure well.
--- NOTE | 2021-11-27 14:12 | DI.RAD_ITS ---
Exam(s) RF JOINT INJECTION FLUORO GUID EXAM: RF JOINT INJECTION FLUORO GUID CLINICAL HISTORY: R HIP INJ UNDER FLUORO,rt hip pain, m25.551 TECHNIQUE: Fluoroscopy provided. Radiologist not present. CONTRAST MATERIAL: None COMPARISON: No exams were available for comparison FINDINGS: Fluoroscopy was provided for therapeutic right hip injection. Submitted image(s) reveal intra-articular injection of a small amount contrast needle placement at th e lateral aspect of the femoral head Please refer to the procedure report for complete details. Cumulative Dose: gloria Welsh=0.31 mGy IMPRESSION: RADIATION DOSE DELIVERED:
[2021-11-27] MEDS: Omnipaque 300 MG/ML 10 ML BTL IJ (14:14)
[2021-11-27] MEDS: Bupivacaine 0.5% Pres-Free 30 ML VIAL 5 ML IJ (14:15)
[2021-11-27] MEDS: methylPREDNISolone ACETATE 80 MG/ML VIAL IM (14:15)
== END ==
PROVIDERS: PCP Family Medicine; Visit Provider Student in an Organized Health Care Education/Training Program
DX: M25.551 Pain in right hip (principal)
CPT/HCPCS: 20610; 77002; J1040

== ENCOUNTER → 2022-06-08 02:39 | Outpatient (CLI) | payer MEDICARE, BC, SELFPAY ==
--- NOTE | 2022-06-08 06:59 | DI.RAD_ITS ---
Exam(s) XR CHEST 2V PA LATERAL EXAM: XR CHEST 2V PA LATERAL CLINICAL HISTORY: cough,? pneumonia, r05.9. TECHNIQUE: 2D digital imaging was performed. COMPARISON: CR LEFT SHOULDER COMPLETE from 11/12/2015 FINDINGS: 2 views: Heart size is normal. The mediastinum is not widened. Lungs are clear. No infiltrates nor pleural effusions. Right shoulder prosthesis noted. IMPRESSION: No acute pulmonary findings. DATA REPOSITORY: RADIATION DOSE DELIVERED:
== END ==
PROVIDERS: PCP Family Medicine; Visit Provider Physician Assistant
DX: R05.8 Other specified cough (principal)
CPT/HCPCS: 71046

== ENCOUNTER 2022-11-02 03:03 | Outpatient (CLI) | payer MEDICARE, BC, SELFPAY ==
[2022-11-02 12:10] LABS: Abs Immature Grans 0.01 10^3/uL (0.0-0.06); Absolute Basophil Count 0.06 10^3/uL (0.0-0.2); Absolute Eosinophil Count 0.14 10^3/uL (0.0-0.7); Absolute Lymphocyte Count 1.21 10^3/uL (1.2-3.4); Absolute Monocyte Count 0.59 10^3/uL (0.1-0.8); Absolute Neutrophil Count 2.72 10^3/uL (1.2-6.7); Basophils % 1.3; HCT 40.8 % (40.0-50.0); HGB 13.5 g/dL (13.5-17.5); Immature Grans % 0.2; Lymphocytes % 25.6; MCH 29.5 pg (27.0-33.0); MCHC 33.1 % (32.0-36.0); MCV 89 fL (80-95); MPV 11.1 fL (8.0-11.0); Monocytes % 12.5; Neutrophils % 57.4; Platelet Count 209 10^3/uL (130-400); RBC 4.58 10^6/uL (4.36-5.78); RDW 12.6 % (11.8-14.1); RDW-SD 41.4 fL; WBC 4.73 10^3/uL (4.4-10.8)
[2022-11-02 12:29] LABS: ALT 30 U/L (16-63); AST 26 U/L (15-37); Albumin 3.6 g/dL (3.4-5.0); Alkaline Phosphatase 73 U/L (46-116); Anion Gap 5.3 mmol/L (3-11); BUN 25 mg/dL (7-18); Bilirubin, Total 1.3 mg/dL (0.2-1.0); CO2 31.7 mmol/L (21.0-32.0); Calcium 8.9 mg/dL (8.5-10.1); Chloride 106 mmol/L (98-107); Estimated GFR 75.61 (mL/min/1.73m2); Glucose 89 mg/dL (74-106); Potassium 3.8 mmol/L (3.5-5.1); Sodium 143 mmol/L (136-145); Total Protein 6.7 g/dL (6.4-8.2)
== END 2022-11-02 03:04 | disposition home or self-care (01) ==
LOC: LOS 03:03
PROVIDERS: PCP Family Medicine; Visit Provider Family Medicine
DX: I10 Essential (primary) hypertension (principal); K52.832 Lymphocytic colitis
CPT/HCPCS: 36415; 80053; 85025

== ENCOUNTER 2023-03-18 11:27 | Emergency (ER) | payer MEDICARE, BC, SELFPAY ==
[2023-03-18] VITALS (48 sets, daily range): BP systolic 137–189; BP diastolic 66–95; PULSE 36–67; RESP 6–24; O2SAT 93–100
--- NOTE | 2023-03-18 11:15 | RT.EKG_ITS ---
APPROVED REPORT Exam: Resting ECG Reason for Exam: chest pain Patient Location: E HR:63 bpm ECG Measurements Heart Rate 63 AXIS ID 194 P 77 QRSd 112 QRS 5 QT 412 T 62 QTc 420 Conclusion Sinus rhythm...normal P axis, V-rate 60- 99 Incomplete right bundle branch block...QRSd >112, terminal axis(90,270) Inferior infarct, old...Q >35mS, II III aVF Probable anterolateral infarct, old...Q>35mS, abnrm ST-T, V2-V6,I,aVL
--- NOTE | 2023-03-18 11:29 | W.ED.GENAD ---
Discharge Plan Disposition Patient Disposition: Transfer-Acute Inpatient Care Specific Acute Inpt Facility: [facility] [place] Discharge Details Clinical Impression: Angina pectoris, unstable, Lactose intolerance, Sinus bradycardia, Generalized osteoarthritis, Anxiety, Lymphocytic colitis, Essential hypertension, Benign prostatic hyperplasia, Hypogonadism male, Abnormal ECG, Crohn disease Primary Care Provider: Loulou Grissom ED Provider: Darshana Overton Home Meds and New Rx's Prescriptions: No Action triamcinolone acetonide 0.1 % cream 1 applic topical BID PRN (Reason: itching) Qty: 80 0RF budesonide 3 mg capsule,delayed,extend.release 3 mg PO DAILY Qty: 90 4RF sildenafil [Viagra] 100 mg tablet 100 mg PO ONCE PRN (Reason: sexual activity) Qty: 9 6RF multivitamin [One Daily] 1 EACH tablet 1 tab PO DAILY ascorbic acid (vitamin C) 500 MG tablet 500 mg PO DAILY Lactaid 3,000 UNIT tablet,chewable 3,000 unit PO PRN saw palmetto 450 MG capsule 450 mg PO DAILY Lactobacillus acidophilus 1 EACH capsule 1 cap PO DAILY ibuprofen [Advil] 200 MG tablet 2 tab PO TID PRN glucosamine sulfate 2KCl 1,000 MG tablet 1,000 mg PO DAILY doxycycline monohydrate 100 mg tablet 200 mg PO ONCE Qty: 2 2RF Patient Comments: RX complete 03/18/23 CT Discharge Data Discharge Physician: Jeanie Hunt Medical Decision Making This is a 82-year-old male who presents with exertional substernal chest discomfort. In general he is in good health and has a baseline bradycardia. His initial EKG has some minor changes from his previous but no evidence of ST elevation [place]. He received sublingual nitroglycerin x2 and a full dose of aspirin in route and is currently pain-free. We will continue to monitor him and we will check blood work including a CBC, coags, platelets, comprehensive metabolic panel to evaluate his renal function electrolytes and liver function test. His heart score is low if his initial troponin is negative. If he develops EKG changes or his repeat troponin is positive we will obtain a cardiology consult at [facility] [place]. His chest pain is not pleuritic but I will check a D-dimer.. His risk factors are hypertension and family history and distant smoking history. Of note his has severe MS and he is the primary caregiver. He also had 2 children who in 2010 and 2011 his son of an [place] but his son was adopted. His daughter of an infection related to heroin use. 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 Imaging Data Radiologic Study: Imaging: X-Ray (PA and lateral chest x-ray) Radiologist's impression: vRad impression: Right middle lobe pulmonary opacities. No significant change from prior study. Possible chronic atelectasis. Consider chest CT. Lab Data Lab results reviewed: Yes I reviewed the patient's lab results. Lab results narrative: See above. 2 negative troponins. Normal renal function, normal white count, normal platelets and normal coags ECG Data Attestation: I personally reviewed and interpreted this ECG (s) as follows: Prior ECG tracings: available for review Interpretation: The patient is having dynamic EKG changes while in the department. HPI General Date/Time Provider Initiated Documentation: 03/18/23 11:29. Limitations to Documentation: no limitations. Information obtained by: patient, EMS, RN notes reviewed and old records reviewed. History of Present Illness with intensity rated at 2. Patient did receive the following treatments prior to arrival, other (As above) HPI Narrative: Time seen was on arrival in bed 3. The patient is an 82-year-old [id number] male who has cardiac risk factors of family history and hypertension who presents with substernal chest discomfort which began at 5 AM this morning. He said that the pain did not wake him from sleep but awoke and noticed the pain on waking. He said it felt like gas pains or indigestion. At maximum the pain was 2 out of 10 in severity and aggravated by exertion. In route he received a full dose of baby aspirin and 2 sublingual nitroglycerin with complete resolution of his symptoms. He had an EKG per EMS which they stated was a normal sinus rhythm without ST elevation or depression. The patient denied any shortness of breath diaphoresis or dizziness. The patient's has severe MS and when he lifted or exerted himself his chest discomfort was worse. He denied any radiation to the neck or arms. The patient denies any history of hyperlipidemia. He does have a family history his father at 64 of an [place]. No history of diabetes. The patient quit smoking in 1974 but did have a 24-ivnz-bxko history. He denies using cocaine. He does use Viagra but has not used any recently. He denies any leg pain or swelling. He denies fevers or chills. He denies any nausea vomiting diarrhea or respiratory symptoms. He denies any falls or trauma. The patient does exercise daily including riding a bicycle and running. The patient had a stress test done here on 09/18/2021 that showed: 1. Right bundle branch block. 2. He exercised on the Ronnell protocol complete a workload of 7.99 METS, stopping for fatigue. 3. Normal heart rate response to exercise. Patient achieved 92% of predicted heart rate for age. Hypertensive blood pressure response to exercise. 4. There is no electrocardiographic evidence of myocardial ischemia. 5 occasional atrial and ventricular ectopic beats were noted in recovery. Related Data Home Medications Medication Instructions Recorded Confirmed Lactobacillus acidophilus 100 1 cap PO DAILY 11/18/12 03/18/23 million cell capsule ascorbic acid (vitamin C) 500 mg 500 mg PO DAILY 11/18/12 03/18/23 tablet lactase 3,000 unit chewable tablet 3,000 unit PO PRN 11/18/12 03/18/23 (Lactaid) multivitamin (One Daily tablet) 1 tab PO DAILY 11/18/12 03/18/23 saw palmetto 450 mg capsule 450 mg PO DAILY 11/18/12 03/18/23 ibuprofen 200 mg tablet (Advil) 2 tab PO TID PRN 02/01/15 03/18/23 glucosamine sulfate 2KCl 1,000 mg 1,000 mg PO DAILY 04/24/15 03/18/23 tablet triamcinolone acetonide 0.1 % 1 applic topical BID PRN itching 04/28/21 03/18/23 topical cream #80 grams budesonide 3 mg 3 mg PO DAILY #90 tabs 05/19/22 03/18/23 capsule,delayed,extended release doxycycline monohydrate 100 mg 200 mg PO ONCE #2 tabs 12/04/22 tablet sildenafil 100 mg tablet (Viagra) 100 mg PO ONCE PRN sexual activity 12/04/22 03/18/23 #9 tab-caps Previous Rx's Medication Instructions Recorded triamcinolone acetonide 0.1 % 1 applic topical BID PRN itching 04/28/21 topical cream #80 grams budesonide 3 mg 3 mg PO DAILY #90 tabs 05/19/22 capsule,delayed,extended release doxycycline monohydrate 100 mg 200 mg PO ONCE #2 tabs 12/04/22 tablet sildenafil 100 mg tablet (Viagra) 100 mg PO ONCE PRN sexual activity 12/04/22 #9 tab-caps Allergies Allergy/AdvReac Type Severity Reaction Status Date / Time iodine Allergy Unknown SWELLING; Verified 03/18/23 14:59 HIVES lactose Allergy Unknown Verified 03/18/23 14:59 shellfish derived Allergy Unknown SWELLING; Verified 03/18/23 14:59 HIVES General Stated Complaint: Chest Pain DARI: 3 Review of Systems Narrative: see hpi All systems reviewed & are unremarkable except as noted in HPI and below Musculoskeletal Comments: The patient has had a right shoulder replacement. PFSH All Active Problems (Updated 03/18/23 @ 17:21 by Jeanie Hunt MD) Angina pectoris, unstable (Acute) Abnormal ECG (Acute) Crohn disease (Chronic) Hoarseness of voice (Acute) Chronic right hip pain (Chronic) Essential hypertension (Chronic) orthostasis with amlodipine, lightheadedness with losartan. 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 Alamo Renal calculi Surgical History Arthroscopy, Shoulder (02/24/16) 02/24/16 left 10/01/15- RIGHT History of cataract surgery History of right shoulder replacement Family History Mother , 94 Heart disease Father , 64 Heart disease Stroke Brother , 68 Diabetes Essential hypertension Maternal Grandfather Heart disease Paternal Grandfather No problems noted. Maternal Grandmother No problems noted. Paternal Grandmother No problems noted. Son , 44 Stroke Daughter , 44 Substance abuse Social History Smoking/Tobacco Use Status: Former Tobacco Use tobacco type: cigarettes Quit Date: 06/28/87 Tobacco: How many years used: 25 Second Hand Exposure: Yes Smoking risk assessment performed?: Yes Alcohol Intake: former Drug use: Never Substance use type: does not use Caregiver/Support person: No (for his ) Household members: spouse Housing: house Number of Children: 2 Communication Needs: None Do you need help understanding health information?: Never current occupation: retired programs director x 50 years - 2021 Pets and animals: Yes Pets and animals: dog(s) Sexually active: Yes Do you think of yourself as: straight/heterosexual Current gender identity: male Other: both children are What is your relationship status?: How often do you talk on the phone with friends or family?: once per week How often do you get together with friends or relatives?: once per week Do you belong to any clubs or organized social groups?: no Panel score (0-1 are the most socially isolated patients): 1 What type of physical activity do you participate in: other Details: stationary bike and running Duration: 30-45 minutes/day Frequency: 3-4 times per week Andria/Zoroastrianism: Latter Day Special andria needs: No Seatbelt use: always Helmet use: Yes Helmet use: always Drive intox or ride w/intox ups driver: No Do you feel safe at home: Yes Do you feel safe in your relationship?: Yes Additional Social history: Enjoys running 5k daily Exam Narrative Exam Narrative: The patient is a well-developed well-nourished male alert and oriented in no acute distress he was mildly hypertensive with a blood pressure 163/80 heart rate 62 although while on the monitor his heart rate dipped to the 40s which the patient states is normal for him. Const General: cooperative, healthy appearing, comfortable, no acute distress, well developed, well groomed and well hydrated Nutritional Appearance: average body habitus and well nourished Orientation: alert, awake and oriented x3 HENMT Head: normal to inspection, normocephalic and atraumatic Ears: hearing grossly normal bilaterally and external ears normal General nose exam: external nose normal, nares normal and no nasal discharge Face and sinus: normal facial exam, sinuses nontender and face symmetric Mouth: oral mucosae normal, lip normal, tongue normal, oropharynx normal, moist mucous membranes and other (Normal phonation. The patient is handling secretions.) Throat: posterior oropharynx normal and uvula midline Eyes General: appearance normal, both eyes and all related structures Eyelids: eyelids normal Conjunctivae: conjunctivae normal Sclera: sclerae normal Cornea: corneas normal Pupils: PERRL EOM: EOM intact bilaterally and No nystagmus Neck Neck: normal visual inspection, full ROM, no lymphadenopathy, no meningeal signs, trachea midline and supple Carotids: no bruits Lymphatic: no lymphadenopathy noted Chest Chest: normal inspection of the chest Resp Effort & Inspection: normal respiratory effort, able to speak in complete sentences, no audible wheezes, no nasal flaring, no respiratory distress, no retractions, no stridor, not tachypneic, no tracheal deviation, no use of accessory muscles, No prolonged expiratory phase and other (Normal inspiratory to expiratory ratio.) Auscultation: clear to auscultation bilaterally, no rales, no rhonchi, no wheezes and no rubs Tactile Fremitus: tactile fremitus absent Cardio Jugular venous pressure: no JVD Palpation: normal PMI Rate: regular rate Rhythm: regular rhythm Heart Sounds: S1 normal, S2 normal, no gallops, no murmurs and no rubs GI Inspection: normal to inspection and non-distended Palpation: soft, no hepatosplenomegaly, no guarding and nontender Percussion: normal to percussion Auscultation: normal bowel sounds General: No CVA tenderness Back/Spine/Pelvis Back: no CVA tenderness and No back tenderness Cervical Spine: normal cervical lordosis, cervical ROM normal, No cervical muscular tenderness, No pain with cervical ROM, No cervical spinal tenderness and No step off deformity Thoracic/Lumbar Spine: thoracic and lumbar spine normal to inspection, No thoracic spinal tenderness and No lumbar spinal tenderness Pelvis: no pain with anterior-posterior compression and no pain with lateral compression Skin General skin exam: no rashes or lesions noted, turgor normal, no petechiae, no purpura and other (Skin is normal for ethnicity.) Lesions: no lesions Rashes: no rashes Trauma: no lacerations or abrasions Neuro General: patient alert, patient awake, patient oriented x3, moves all extremities, no meningeal signs, no focal motor deficits and CN's II-XI intact bilaterally Cranial Nerves: CN's II-XI intact bilaterally, PERRL, accommodation normal, EOM intact bilaterally, no nystagmus, facial strength normal, tongue midline, hearing normal and no nystagmus Cognition: normal cognition Speech: speech normal Gait: normal gait Motor: muscle tone normal throughout and strength 5/5 throughout Sensory Exam: no sensory deficits noted Extrem General: normal to inspection, full ROM, capillary refill normal, no clubbing, cyanosis or edema and no calf tenderness Psych Appearance: grossly normal Affect: normal affect Attitude: cooperative Thought Process: normal Thought Content: normal Insight: insight good Judgment: judgment good Other: The patient appears to have capacity make medical decisions. Course The patient remained stable in the emergency department. He did mention that he had a brief episode of chest discomfort which lasts a few minutes and resolve spontaneously. He did not notify us. Reevaluation(s) Time: 13:53 Reevaluation: I have updated the patient on the labs and EKG. He states he has not had any further chest pain. We are awaiting his CT and second troponin Time: 15:01 Reevaluation #2: Patient has an iodine allergy. Will cancel the chest CT and obtain a PA lateral chest x-ray Instead. I will contact cardiology at [facility] [place] once the second troponin has resulted. I did discuss the case with Dr. Avelar who advised that the patient be transferred to [facility] [place]. Time: 16:38 Additional Reevaluation(s): I have updated the patient on disposition and the need for the heparin drip. The patient is lactose intolerance and there is lactose in atorvastatin but we will give him Lactaid prior to the atorvastatin. The patient states he usually takes Lactaid if he knows he is going to have any lactose. I did discuss this with the pharmacist. Consultations Consultation #1: Betina Ellison, cardiology PA at [facility] [place]. She excepted the patient for Dr. Ling. A bed is available and the patient should be able to be transferred in a few hours. She recommended we start the patient on heparin drip with bolus and advised to give 40 mg of atorvastatin. She did not want to initiate Plavix. She recommended that if the patient had recurrent chest pain we should give repeat nitroglycerin and repeat the EKG. Time: 16:12 Vital Signs Vital signs: Vital Signs Pulse 62 03/18/23 11:22 Respiratory Rate 18 03/18/23 11:22 Blood Pressure 163/80 H 03/18/23 11:22 Pulse Oximetry 99 03/18/23 11:22 Pulse 62 03/18/23 11:22 Respiratory Rate 18 03/18/23 11:22 Blood Pressure 163/80 H 03/18/23 11:22 Blood Pressure Position Sitting 03/18/23 11:22 Pulse Oximetry 99 03/18/23 11:22 Oxygen Delivery Method Room Air 03/18/23 11:22 Oxygen Flow Rate 0 03/18/23 11:22 Pain Level 2 03/18/23 11:22 Lab/Test Results Lab/Test Results: Normal renal function, normal electrolytes, troponin x2 normal, elevated D-dimer likely normal for age Critical Care Time Critical Care Time Total Critical Care Time: 67 Attestation: This includes time at the bedside, interpretation of EKGs and lab work. Review of radiographs, consultation with hospitalist, pharmacist and cardiology at [facility] [place]. Sign Out Sign Out Data: Sign Out Comment: This is a 82-year-old male with risk factors of hypertension, family history and distant tobacco use who presents with substernal chest pain relieved by 2 nitroglycerin and loading dose of aspirin in route. In the emergency department he has had 2 negative troponins but has had dynamic EKG changes. Cardiology at [facility] [place] was consulted and they have accepted the patient who should have a bed tonight. The patient has been placed on heparin and has been given atorvastatin with Lactaid. They did not want to start Plavix. If the patient has recurrent chest pain they suggested repeating sublingual nitroglycerin and repeating the EKG. Last updated by Jeanie Hunt MD at 03/18/23 17:29
[2023-03-18 12:14] LABS: Abs Immature Grans 0.02 10^3/uL (0.0-0.06); Absolute Basophil Count 0.05 10^3/uL (0.0-0.2); Absolute Eosinophil Count 0.46 10^3/uL (0.0-0.7); Absolute Lymphocyte Count 1.17 10^3/uL (1.2-3.4); Absolute Monocyte Count 0.91 10^3/uL (0.1-0.8); Absolute Neutrophil Count 2.62 10^3/uL (1.2-6.7); Eosinophils % 8.8; HCT 44.5 % (40.0-50.0); HGB 14.7 g/dL (13.5-17.5); Immature Grans % 0.4; Lymphocytes % 22.4; MCH 28.7 pg (27.0-33.0); MCV 87 fL (80-95); MPV 10.6 fL (8.0-11.0); Monocytes % 17.4; Platelet Count 236 10^3/uL (130-400); RBC 5.12 10^6/uL (4.36-5.78); RDW 12.1 % (11.8-14.1); RDW-SD 39.2 fL; WBC 5.23 10^3/uL (4.4-10.8)
[2023-03-18 12:28] LABS: PTT Activated 23.8 sec (21.5-31.9); Prothrombin Time 9.9 sec (9.3-11.0)
[2023-03-18 12:33] LABS: ALT 26 U/L (16-63); AST 21 U/L (15-37); Albumin 3.8 g/dL (3.4-5.0); Alkaline Phosphatase 90 U/L (46-116); Anion Gap 7.7 mmol/L (3-11); BUN 23 mg/dL (7-18); Bilirubin, Total 1.4 mg/dL (0.2-1.0); CO2 29.3 mmol/L (21.0-32.0); CREATININE 0.9 mg/dL (0.70-1.30); Calcium 9.4 mg/dL (8.5-10.1); Chloride 102 mmol/L (98-107); Glucose 108 mg/dL (74-106); Potassium 3.9 mmol/L (3.5-5.1); Sodium 139 mmol/L (136-145); Total Protein 7.3 g/dL (6.4-8.2); Troponin I < 50 ng/L (<or=60)
[2023-03-18 12:43] LABS: D-Dimer 624 ng/mlFEU (<500)
[2023-03-18 12:56] LABS: NT-proBNP 110 pg/mL (<300)
--- NOTE | 2023-03-18 14:30 | RT.EKG_ITS ---
APPROVED REPORT Exam: Resting ECG Reason for Exam: Patient Location: E HR:60 bpm ECG Measurements Heart Rate 60 AXIS OR 205 P -16 QRSd 115 QRS 39 QT 440 T 10 QTc 438 Conclusion Sinus rhythm...normal P axis, V-rate 60- 99 Incomplete right bundle branch block...QRSd >112, terminal axis(90,270)
--- NOTE | 2023-03-18 15:00 | DI.RAD_ITS ---
Exam(s) XR CHEST 2V PA LATERAL EXAM: XR CHEST 2V PA LATERAL CLINICAL HISTORY: chest pain TECHNIQUE: 2D digital imaging was performed. COMPARISON: No exams were available for comparison FINDINGS: HEART: Normal size. Aorta: Not dilated. Tortuous. PULMONARY VASCULATURE: Normal. LUNGS: Clear. PLEURAL SPACE: No pleural effusion or pneumothorax. BONE:Unremarkable for age. Right shoulder prosthesis. IMPRESSION: No acute abnormality. DATA REPOSITORY: RADIATION DOSE DELIVERED:
[2023-03-18 15:04] LABS: Troponin I < 50 ng/L (<or=60)
--- NOTE | 2023-03-18 16:33 | DI.VRAD_ITS ---
PROCEDURE INFORMATION: Exam: XR Chest Exam date and time: 03/18/2023 3:21 PM Age: 82 years old Clinical indication: Other: Chest pain TECHNIQUE: Imaging protocol: Radiologic exam of the chest. Views: 2 views. COMPARISON: CR XR CHEST 2V PA LATERAL 06/08/2022 8:33 AM FINDINGS: Lungs: Right middle lobe atelectasis and pulmonary opacity. No lung consolidation. Pleural spaces: Unremarkable. No pleural effusion. No pneumothorax. Heart/Mediastinum: Unremarkable. No cardiomegaly. Bones/joints: Right shoulder prosthesis. IMPRESSION: Right middle lobe pulmonary opacities. No significant change from prior study. Possible chronic atelectasis. Consider chest CT. Dictated and Authenticated by: Adolfo West MD. Ordering:ELOINA Ware MD
[2023-03-18] MEDS: Normal Saline 1,000 ML 125 ML IV (16:45)
[2023-03-18] MEDS: Heparin in 0.45% NaCl 25,000 UNIT/250 ML BAG 8.5 UNIT IV (16:46)
[2023-03-18] MEDS: Atorvastatin 40 MG TAB PO (16:53)
[2023-03-18 17:37] LABS: COVID-19 PCR Negative (Negative); Influenza A PCR Negative (Negative); Influenza B PCR Negative (Negative); RSV PCR Negative (Negative)
[2023-03-18 17:39] LABS: Source Nasopharynx
== END 2023-03-18 18:34 | disposition short-term general hospital (02) ==
PROVIDERS: Emergency Medicine Emergency Medical Services; Emergency Provider Emergency Medicine; PCP Family Medicine
DX: R07.9 Chest pain, unspecified (principal); I20.8 Other forms of angina pectoris; I45.19 Other right bundle-branch block; R00.1 Bradycardia, unspecified; I10 Essential (primary) hypertension; R06.02 Shortness of breath; Z96.611 Presence of right artificial shoulder joint
CPT/HCPCS: 36415; 80053; 87637; 93005; 99285; 71046; 83735; 83880; 84484; 85025; 85379; 85610; 85730; 93010

== ENCOUNTER 2023-08-02 14:14 | Outpatient (CLI) | payer MEDICARE, BC, SELFPAY ==
--- NOTE | 2023-08-02 14:05 | DI.RAD_ITS ---
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 TECHNIQUE: 2D digital imaging was performed. Three views. COMPARISON: None. FINDINGS: BONES: No acute fracture is present. No bony destructive lesion is seen. JOINTS: No dislocation present. Some severe narrowing and spurring at the lateral aspect of the inte rphalangeal joint of the thumb. Moderate degenerative changes involving the 1st metacarpophalangeal joint. Moderate to severe degenerative changes of the 1st carpal metacarpal joint. The navicular ap pears normal. SOFT TISSUE: Normal. IMPRESSION: Degenerative changes at the 1st carpometacarpal, 1st metacarpophalangeal and interphalangeal joints. DATA REPOSITORY: RADIATION DOSE DELIVERED:
== END 2023-08-02 14:15 | disposition home or self-care (01) ==
LOC: DIORS 14:15
PROVIDERS: PCP Family Medicine; Referring Provider Family Medicine; Visit Provider Student in an Organized Health Care Education/Training Program
DX: M18.12 Unilateral primary osteoarthritis of first carpometacarpal joint, left hand (principal)
CPT/HCPCS: 20600; 99213; 73140; J1030

== ENCOUNTER → 2023-10-14 14:14 | Outpatient (BNVA) | payer MEDICARE, BC, SELFPAY | PROVIDERS: PCP Family Medicine; Referring Provider Family Medicine; Visit Provider Student in an Organized Health Care Education/Training Program | DX: M16.12 Unilateral primary osteoarthritis, left hip (principal) | CPT/HCPCS: 20611; J1010 ==

== ENCOUNTER → 2023-11-26 09:46 | Outpatient (BNVA) | payer MEDICARE, BC, SELFPAY | PROVIDERS: PCP Family Medicine; Referring Provider Family Medicine; Visit Provider Urology | DX: N40.0 Benign prostatic hyperplasia without lower urinary tract symptoms (principal) | CPT/HCPCS: 81003; 99215 ==

== ENCOUNTER → 2024-01-10 14:46 | Outpatient (BNVA) | payer MEDICARE, BC, SELFPAY | PROVIDERS: PCP Family Medicine; Referring Provider Family Medicine; Visit Provider Student in an Organized Health Care Education/Training Program | DX: M16.12 Unilateral primary osteoarthritis, left hip (principal); M76.892 Other specified enthesopathies of left lower limb, excluding foot; S76.312D Strain of muscle, fascia and tendon of the posterior muscle group at thigh level, left thigh, subsequent encounter; X58.XXXD Exposure to other specified factors, subsequent encounter | CPT/HCPCS: 99213 ==

== ENCOUNTER 2024-01-11 04:29 | Outpatient (CLI) | payer MEDICARE, BC, SELFPAY ==
[2024-01-11 07:55] LABS: Anion Gap 7.7 mmol/L (3-11); BUN 27 mg/dL (7-18); CO2 28.3 mmol/L (21.0-32.0); CREATININE 0.9 mg/dL (0.70-1.30); Calcium 8.6 mg/dL (8.5-10.1); Chloride 108 mmol/L (98-107); Cholesterol 158 mg/dL (<200); Estimated GFR 85.27 (mL/min/1.73m2); Glucose 95 mg/dL (74-106); HDL Cholesterol 76 mg/dL (40-60); Potassium 3.9 mmol/L (3.5-5.1); Sodium 144 mmol/L (136-145)
[2024-01-11 08:06] LABS: Calculated LDL 77 mg/dL (<100); Triglyceride 25 mg/dL (<150)
== END 2024-01-11 04:30 | disposition home or self-care (01) ==
LOC: LBO 04:29
PROVIDERS: PCP Family Medicine; Visit Provider Family Medicine
DX: I10 Essential (primary) hypertension (principal); Z13.6 Encounter for screening for cardiovascular disorders
CPT/HCPCS: 36415; 80048; 80061

== ENCOUNTER → 2024-02-10 12:57 | Outpatient (BNVA) | payer MEDICARE, BC, SELFPAY | PROVIDERS: PCP Family Medicine; Referring Provider Family Medicine; Visit Provider Student in an Organized Health Care Education/Training Program | DX: M16.12 Unilateral primary osteoarthritis, left hip (principal) | CPT/HCPCS: 20611; J1010 ==

== ENCOUNTER → 2024-04-10 08:35 | Outpatient (BNVA) | payer MEDICARE, BC, SELFPAY | PROVIDERS: PCP Family Medicine; Referring Provider Family Medicine; Visit Provider Student in an Organized Health Care Education/Training Program | DX: M16.12 Unilateral primary osteoarthritis, left hip (principal) | CPT/HCPCS: 20610; J1010 ==

== ENCOUNTER 2024-07-13 00:23 | Outpatient (CLI) | payer MEDICARE, BC, SELFPAY ==
--- NOTE | 2024-07-13 09:13 | DI.MRI_ITS ---
Exam(s) MR LOWER JOINT LT WO EXAM: MR LOWER JOINT LT WO CLINICAL HISTORY: chronic left hip / buttock pain,tendonitis lt hip abductors, m76.892 TECHNIQUE: Multiplanar multisequence MRI of Pelvis was performed COMPARISON: CR XR HIP RT COMPLETE AP PELVIS from 11/20/2021 FINDINGS: Bones: There is no fracture or contusion pattern. No bone marrow edema is seen. Joints: No significant joint effusion or gross labral defect is present. The SI joints and symphysis pubis are well maintained. 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 Partial tear versus tendinitis at the insertion of the gluteus medius tendon on the greater trochanter. Intrapelvic structures demonstrate no significant abnormality. Prostate mildly enlarged. IMPRESSION: Partial tear versus tendinitis at the left gluteus medius tendon insertion. 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 DATA REPOSITORY:
== END 2024-07-13 00:43 ==
LOC: DI 00:23
PROVIDERS: PCP Family Medicine; Visit Provider Family Medicine
DX: S76.012A Strain of muscle, fascia and tendon of left hip, initial encounter (principal); X58.XXXA Exposure to other specified factors, initial encounter
CPT/HCPCS: 73721

== ENCOUNTER → 2024-10-09 14:16 | Outpatient (BNVA) | payer MEDICARE, BC, SELFPAY | PROVIDERS: PCP Family Medicine; Referring Provider Family Medicine; Visit Provider Student in an Organized Health Care Education/Training Program | DX: M70.72 Other bursitis of hip, left hip (principal) | CPT/HCPCS: 99213 ==

== ENCOUNTER → 2025-05-31 10:42 | Outpatient (BNVA) | payer MEDICARE, BC, SELFPAY | PROVIDERS: PCP Family Medicine; Referring Provider Family Medicine; Visit Provider Student in an Organized Health Care Education/Training Program | DX: M76.892 Other specified enthesopathies of left lower limb, excluding foot (principal) | CPT/HCPCS: 99213 ==